=== PATIENT | female | born 1970 | race African-American/Black ===

== ENCOUNTER → 2017-09-24 | Outpatient (CLI) | payer BC ==
--- NOTE | 2017-09-24 14:56 | RADIOLOGY REPORT (SQ) ---
EXAM DESCRIPTION: MRI RT UPPER EXTREMITY COMBO COMPLETED DATE/TIME: 09/24/2017 9:42 am REASON FOR STUDY: LOCALIZED SWELLING, MASS AND LUMP IN RIGHT HAND (R22.31) R22.31 LOCALIZED SWELLIN G, MASS AND LUMP, RIGHT UPPER LIMB COMPARISON: None. TECHNIQUE: Multiplanar fat and fluid sensitive sequences precontrast including T1, T2 fat saturated or STIR. Post contrast T1 fat saturated sequences after IV gadolinium administration. CONTRAST TYPE AND DOSE: 10 mL Prohance. RENAL FUNCTION: GFR > 60. LIMITATIONS: None. FINDINGS: On the volar aspect of the head of the 4th metacarpal there is approximately 7 x 3 mm lesi on following fluid on all sequences which does not enhance consistent with a ganglion cyst. Cyst lie s along the volar margin of the flexor tendon. Regional marrow signal is normal. IMPRESSION: Ganglion cyst. TECHNICAL DOCUMENTATION: JOB ID: [id number] [employer]- All Rights Reserved
== END ==
LOC: RAD 08:04
PROVIDERS: ATTEND Orthopaedic Surgery
PROC: 4A1HXCZ Monitoring of Products of Conception, Cardiac Rate, External Approach (ICD-10-PCS; principal; 2017-09-24)
DX: M67.431 Ganglion, right wrist (principal); R22.31 Localized swelling, mass and lump, right upper limb

== ENCOUNTER 2017-11-23 07:05 | Day surgery (SDC) | payer BC ==
[2017-11-16 11:17] LABS: APPEARANCE,URINE SLIGHTLY-CLOUDY; BILIRUBIN,URINE NEGATIVE (NEGATIVE); COLOR,URINE YELLOW; GLUCOSE, URINE NEGATIVE (NEGATIVE); KETONES,URINE NEGATIVE (NEGATIVE); LEUKOCYTE ESTERASE,URINE NEGATIVE (NEGATIVE); NITRITE,URINE NEGATIVE (NEGATIVE); PROTEIN,URINE NEGATIVE (NEGATIVE); URINE SPECIFIC GRAVITY 1.013; UROBILINOGEN,URINE NEGATIVE mg/dL (<2.0)
[2017-11-16 11:52] LABS: ABSOLUTE BASOPHILS # (AUTO) 0.1 10^3/uL (0.0-0.2); ABSOLUTE EOSINOPHILS # (AUTO) 0.2 10^3/uL (0.0-0.6); ABSOLUTE LYMPHOCYTES (AUTO) 2.5 10^3/uL (0.5-4.7); ABSOLUTE MONOCYTES (AUTO) 0.7 10^3/uL (0.1-1.4); ABSOLUTE NEUT (AUTO) 3.9 10^3/uL (1.7-8.2); BASOPHILS % (AUTO) 1.4 % (0-2); EOSINOPHILS % (AUTO) 3.3 % (0-6); HEMATOCRIT 38.5 % (36.0-47.0); HEMOGLOBIN 12.6 g/dL (12.0-15.5); LYMPHOCYTES % (AUTO) 33.9 % (13-45); MEAN CORPUSCULAR HEMOGLOBIN 27.4 pg (27.0-33.4); MEAN CORPUSCULAR HGB CONC 32.7 g/dL (32.0-36.0); MEAN CORPUSCULAR VOLUME 84 fl (80-97); MONOCYTES % (AUTO) 8.8 % (3-13); PLATELET COUNT 296 10^3/uL (150-450); RED BLOOD COUNT 4.61 10^6/uL (3.72-5.28); RED CELL DISTRIBUTION WIDTH 15.3 % (11.5-14.0); SEGMENTED NEUTROPHILS % (AUTO) 52.6 % (42-78); TOTAL CELLS COUNTED % (AUTO) 100 %; WHITE BLOOD COUNT 7.5 10^3/uL (4.0-10.5)
--- NOTE | 2017-11-16 11:58 | RADIOLOGY REPORT (SQ) ---
EXAM DESCRIPTION: CHEST PA/LATERAL COMPLETED DATE/TIME: 11/16/2017 11:25 am REASON FOR STUDY: PRE OP COMPARISON: None. EXAM PARAMETERS: NUMBER OF VIEWS: two views TECHNIQUE: Digital Frontal and Lateral radiographic views of the chest acquired. RADIATION DOSE: NA LIMITATIONS: none FINDINGS: LUNGS AND PLEURA: Minimal lingular bandlike atelectasis or scarring. No fluffy alveolar infiltrates worrisome for edema or pneumonia. No pleural effusion. No pneumothor ax. MEDIASTINUM AND HILAR STRUCTURES: No masses or contour abnormalities. HEART AND VASCULAR STRUCTURES: Heart normal size. No evidence for failure. BONES: No acute findings. HARDWARE: None in the chest. OTHER: No other significant finding. IMPRESSION: Minimal lingular atelectasis or scarring TECHNICAL DOCUMENTATION: JOB ID: [id number] [employer]- All Rights Reserved
[2017-11-16 12:21] LABS: ANION GAP 8 (5-19); BLOOD UREA NITROGEN 11 mg/dL (7-20); CALCIUM 9.7 mg/dL (8.4-10.2); CARBON DIOXIDE 26 mmol/L (22-30); CHLORIDE 105 mmol/L (98-107); GLUCOSE 87 mg/dL (75-110); POTASSIUM 4.1 mmol/L (3.6-5.0); SODIUM 138.7 mmol/L (137-145)
--- NOTE | 2017-11-16 13:00 | EKG REPORT ---
SEVERITY:- ABNORMAL ECG - SINUS RHYTHM PROBABLE ANTEROSEPTAL INFARCT, AGE INDETERM BORDERLINE T ABNORMALITIES, INFERIOR LEADS : Confirmed by: Delvis Montiel MD 16-Nov-2017 13:00:05
[~2017-11-23 07:05] MED LIST: ACETAMINOPHEN 100 ML IV ONE; CEFAZOLIN 2 GM/D5W RTU 2 GM/50 ML RTUPB IV PRN; EPHEDRINE SULFATE INJ 50 MG/1 ML AMPULE ONE; FENTANYL CITRATE INJ/PF 100 MCG/2 ML AMPUL ONE; KETAMINE HCL INJ 500 MG/10 ML VIAL ONE; LACTATED RINGERS 1000 ML IV PRN; LIDOCAINE 0.5% INJ-PF (5 MG/ML) 50 ML SDV SUBCUT PRN; MIDAZOLAM 2 MG/2 ML INJ ONE; PROPOFOL INJ 200 MG/20 ML VIAL IV ONE
[2017-11-23] MEDS ORDERED: BUPIVACAINE HCL 0.5 % INJ/PF 30 ML SDV ONE (08:04)
[2017-11-23] MEDS ORDERED: LIDOCAINE 1% INJ-PF (10 MG/ML) 30 ML SDV ONE (09:21)
[2017-11-23] MEDS ORDERED: ONDANSETRON HCL INJ/PF 4 MG/2 ML SDV IV PRN ×2 (09:37→10:51)
[2017-11-23] MEDS ORDERED: MORPHINE SULFATE 10 MG/ML INJ IV PRN (09:37)
[2017-11-23] MEDS ORDERED: HYDROCODONE/ACETAMINOPHEN 5-325 MG TABLET PO PRN (09:37)
--- NOTE | 2017-11-23 09:37 | Operative Report ---
Operative Report DATE OF SURGERY: 11/23/17 PREOPERATIVE DIAGNOSIS: Mass right hand POSTOPERATIVE DIAGNOSIS: Ganglion cyst tendon sheath right ring finger OPERATION: 1. excision ganglion right ring finger. 2. A1 blanca release right ring finger SURGEON: EBEN LEE ANESTHESIA: LMAC TISSUE REMOVED OR ALTERED: Mass right hand COMPLICATIONS: None ESTIMATED BLOOD LOSS: Minimal PROCEDURE: Indication for above procedure: 47-year-old female presented to my office with mass along the palm of her right hand. MRI was done demonstrating likely ganglion along the flexor tendon sheath. At that point we discussed treatment options including operative versus nonoperative intervention. Risks and benefits were explained to the patient decision was made to proceed with operative treatment. Procedure In Detail: Patient was seen and evaluated in the preoperative holding area. The RIGHT upper extremity was initialized and marked. Patient received 2g of Ancef IV for bacterial prophylaxis. Patient was taken back to the operative room where transferred to the operative table. Once they were adequately anesthetized a nonsterile tourniquet was placed on the upper extremity. A surgical team debriefing was performed ensuring all instrumentation was available, the surgical procedure was discussed with possible concerns reviewed. A digital block was performed utilizing 10 mL 50:50 mixture of 0.5% Marcaine and 1% lidocaine without epinephrine. The upper extremity was prepped with chlorhexidine and alcohol and draped in a sterile fashion. A timeout was done identifying correct patient, procedure and extremity everyone in attendance agree with this and verbalized no concerns. The extremity was exsanguinated the tourniquet was inflated to 250 mmHg. Longitudinal skin incision was made centered over the A1 blanca of the ring finger. The radial and ulnar neurovascular bundles were identified and retracted from the wound. The ganglion cyst was located just ulnar to the A1 blanca. The A1 blanca was identified and incised. The A1 blanca was released to the level of the A2 blanca but not through the A2 blanca. The palmar aponeurotic blanca was released proximal to the A1 blanca. I then resected the ulnar aspect of the A1 blanca with the ganglion was attached. Ganglion was then sent to pathology. The wound was then copiously irrigated with normal saline. Skin was closed with interrupted 4-0 nylon suture. Wound was dressed with Xeroform and a soft dressing. Sponge counts, instrument counts, needle counts counts were correct. Patient was then awoken from anesthesia. Transferred from the operating room table to the operating room stretcher. There was no intraoperative complications patient tolerated procedure well stable to PACU. Postoperative plan: Patient will follow-up as scheduled for wound check. They will call with any questions or concerns.
--- NOTE | 2017-11-23 09:37 | PDOC DISCHARGE SUMMARY ---
Discharge Summary (SDC) - Discharge Final Diagnosis: Mass Right Hand Date of Surgery: 11/23/17 Discharge Date: 11/23/17 Condition: Good Treatment or Instructions: Schedule Follow Up w/ Dr. Ruben Khan @ [facility] for Surgery to be seen in 10-14 days or as scheduled [place]: [place]: [place]: May remove dressing on postop day #3, keep incision covered and dry. Ice and elevate May begin finger range of motion attempting to make full fist. Stool softener of choice when on pain medication. I Prescriptions: Hydrocodone/Acetaminophen [Renovo 5-325 mg Tablet] 1 tab PO Q6 #20 tablet Referrals: AMARI GOMEZ MD [Primary Care Provider] - Discharge Diet: As Tolerated Respiratory Treatments at Home: Deep Breathing/Coughing Discharge Activity: No Lifting Over 10 Pounds, No Lifting/Push/Pulling Report the Following to Your Physician Immediately: Fever over 101 Degrees, Unusual Bleeding, Redness, Swelling
[2017-11-23] MEDS ORDERED: MEPERIDINE HCL/PF INJ 25 MG/1 ML DISP.SYRIN IV PRN (10:51)
[2017-11-23] MEDS ORDERED: DIPHENHYDRAMINE HCL 50 MG/ML VIAL IV PRN (10:51)
[2017-11-23] MEDS ORDERED: PROMETHAZINE HCL INJ 25 MG/1 ML VIAL IV PRN ×2 (10:51)
[2017-11-23] MEDS ORDERED: FENTANYL CITRATE INJ/PF 100 MCG/2 ML AMPUL IV PRN ×3 (10:51)
[2017-11-23] MEDS ORDERED: SUCCINYLCHOLINE CHLORIDE INJ 200 MG/10 ML VIAL ONE (12:00)
[2017-11-23] MEDS ORDERED: GLYCOPYRROLATE INJ 0.4 MG/2 ML VIAL ONE (12:00)
[2017-11-23] MEDS ORDERED: DEXAMETHASONE SOD PHOSPHATE INJ 4 MG/1 ML VIAL ONE (12:00)
[2017-11-23] MEDS ORDERED: LIDOCAINE 2% INJ-PF (20 MG/ML) 2 ML AMPUL ONE (12:00)
[2017-11-23] MEDS ORDERED: KETOROLAC TROMETHAMINE 60 MG/2 ML SDV ONE (12:00)
[2017-11-23] MEDS ORDERED: METOCLOPRAMIDE HCL INJ/PF 10 MG/2 ML SDV ONE (12:00)
[2017-11-23] MEDS ORDERED: ONDANSETRON HCL INJ/PF 4 MG/2 ML SDV ONE (12:00)
[2017-11-23 12:30] VITALS: BP 120/78
== END 2017-11-23 11:50 | disposition home or self-care (01) ==
LOC: OROUT 07:05
PROVIDERS: ATTEND Orthopaedic Surgery
PROC: 0LB70ZZ Excision of Right Hand Tendon, Open Approach (ICD-10-PCS; principal; 2017-11-23 09:30)
DX: M67.441 Ganglion, right hand (principal); F17.210 Nicotine dependence, cigarettes, uncomplicated; I10 Essential (primary) hypertension; Z79.899 Other long term (current) drug therapy
CPT/HCPCS: 93005; 36415 ×2; 84132; 85025; 81025; 80048; 81001; 88304 ×2; 71046; 93010; 26160; J2250; J3490 ×4; J1100; J1885; J3010; J2765; J0330; J2405; J2704; J0690; J0131; 1810

== ENCOUNTER → 2018-05-18 | Outpatient (CLI) | payer BC ==
[2018-05-18 14:03] LABS: HEMATOCRIT 35.1 % (36.0-47.0); HEMOGLOBIN 11.6 g/dL (12.0-15.5); MEAN CORPUSCULAR HGB CONC 32.9 g/dL (32.0-36.0); MEAN CORPUSCULAR VOLUME 82 fl (80-97); PLATELET COUNT 309 10^3/uL (150-450); RED BLOOD COUNT 4.28 10^6/uL (3.72-5.28); RED CELL DISTRIBUTION WIDTH 14.8 % (11.5-14.0); WHITE BLOOD COUNT 8.5 10^3/uL (4.0-10.5)
--- NOTE | 2018-05-18 14:15 | RADIOLOGY REPORT (SQ) ---
EXAM DESCRIPTION: CHEST PA/LATERAL COMPLETED DATE/TIME: 05/18/2018 2:00 pm REASON FOR STUDY: CHEST PAIN, UNSPECIFIED COMPARISON: 11/16/2017. EXAM PARAMETERS: NUMBER OF VIEWS: two views TECHNIQUE: Digital Frontal and Lateral radiographic views of the chest acquired. RADIATION DOSE: NA LIMITATIONS: none FINDINGS: LUNGS AND PLEURA: No opacities, masses or pneumothorax. No pleural effusion. MEDIASTINUM AND HILAR STRUCTURES: No masses or contour abnormalities. HEART AND VASCULAR STRUCTURES: Heart normal size. No evidence for failure. BONES: No acute findings. HARDWARE: None in the chest. OTHER: No other significant finding. IMPRESSION: NO SIGNIFICANT RADIOGRAPHIC FINDING IN THE CHEST. TECHNICAL DOCUMENTATION: JOB ID: [id number] [employer]- All Rights Reserved Reading location - IP/workstation name: [email or web address]
[2018-05-18 14:20] LABS: ALANINE AMINOTRANSFERASE 28 U/L (9-52); ALBUMIN 3.9 g/dL (3.5-5.0); ALKALINE PHOSPHATASE 70 U/L (38-126); ANION GAP 9 (5-19); ASPARTATE AMINO TRANSFERASE 25 U/L (14-36); BILIRUBIN,DIRECT 0.2 mg/dL (0.0-0.4); BILIRUBIN,TOTAL 0.3 mg/dL (0.2-1.3); BLOOD UREA NITROGEN 11 mg/dL (7-20); CALCIUM 9.3 mg/dL (8.4-10.2); CARBON DIOXIDE 22 mmol/L (22-30); CHLORIDE 111 mmol/L (98-107); GLUCOSE 86 mg/dL (75-110); POTASSIUM 4.4 mmol/L (3.6-5.0); SODIUM 142.4 mmol/L (137-145)
== END ==
LOC: OD 13:31
PROVIDERS: ATTEND Obstetrics & Gynecology
DX: R07.9 Chest pain, unspecified (principal)
CPT/HCPCS: 36415; 71046; 80053; 84484; 85027; 85379

== ENCOUNTER 2018-05-23 17:53 | Observation (INO) | payer BC ==
[2018-05-23] MEDS ORDERED: ASPIRIN 81 MG TABLET, CHEWABLE PO ONE (19:01)
[2018-05-23] MEDS ORDERED: NITROGLYCERIN 0.4 MG/TAB 25 TAB/BOTTLE SL PRN (19:02)
--- NOTE | 2018-05-23 19:04 | ER Document Report ---
ED Medical Screen (RME) - General Chief Complaint: Chest Pain Stated Complaint: CHEST PAINS Time Seen by Provider: 05/23/18 18:53 Mode of Arrival: Ambulatory TRAVEL OUTSIDE OF THE [place] IN LAST 30 DAYS: No - HPI Notes: 05/23/18 18:59 40-year-old female presents to the ED with complaints of chest pain that started at 1630 today, left-sided, no radiation to jaw or arm and back. States last for a few minutes and then goes away. Started while at work, patient was at rest. Patient takes daily aspirin. Patient was evaluated by primary care doctor week ago, told she did have a history of a prior [place] and looking EKG, will have her follow-up with the actuarial analyst. Patient is a smoker, half a pack a day. Unsure parents cardiac status due to him passing from a drug users. Denies any fevers or chills. Patient states she does have intermittent shortness of breath with chest pain. Pain is fleeting. Has not tried any nitro. Lungs CTA S1, S2 regular rhythm. No murmurs noted I have greeted and performed a rapid initial assessment of this patient. A comprehensive ED assessment and evaluation of the patient, analysis of test results and completion of medical decision making process will be conducted by an additional ED providers. - Related Data Allergies/Adverse Reactions: No Known Allergies Allergy (Verified 05/23/18 18:45) Past Medical History - Social History Chew tobacco use (# tins/day): No Frequency of alcohol use: Social Drug Abuse: None - Past Medical History Cardiac Medical History: Reports: Hx Hypertension - ON MEDS Denies: Hx Coronary Artery Disease, Hx Heart Attack Pulmonary Medical History: Denies: Hx Asthma, Hx Bronchitis, Hx COPD, Hx Pneumonia Neurological Medical History: Denies: Hx Cerebrovascular Accident, Hx Seizures Renal/ Medical History: Denies: Hx Peritoneal Dialysis Musculoskeltal Medical History: Denies Hx Arthritis Past Surgical History: Reports: Hx Gynecologic Surgery - Right tube removed, ECTOPIC - Immunizations Hx Diphtheria, Pertussis, Tetanus Vaccination: Yes History of Influenza Vaccine for 07/2017 - 12/2017 Season: Yes Influenza Administration Date for 07/2017 - 12/2017 Season: 07/19/17 Physical Exam - Vital signs Vitals: Temp Pulse Resp BP Pulse Ox 98.2 F 68 16 115/70 100 05/23/18 18:38 05/23/18 18:38 05/23/18 18:38 05/23/18 18:38 05/23/18 18:38 Course - Vital Signs Vital signs: Temp Pulse Resp BP Pulse Ox 98.2 F 68 16 115/70 100 05/23/18 18:38 05/23/18 18:38 05/23/18 18:38 05/23/18 18:38 05/23/18 18:38 Doctor's Discharge - Discharge Referrals: AMARI GOMEZ MD [Primary Care Provider] - Follow up as needed
[2018-05-23 19:37] LABS: ABSOLUTE BASOPHILS # (AUTO) 0.2 10^3/uL (0.0-0.2); ABSOLUTE EOSINOPHILS # (AUTO) 0.4 10^3/uL (0.0-0.6); ABSOLUTE LYMPHOCYTES (AUTO) 3.4 10^3/uL (0.5-4.7); ABSOLUTE MONOCYTES (AUTO) 0.9 10^3/uL (0.1-1.4); BASOPHILS % (AUTO) 1.9 % (0-2); EOSINOPHILS % (AUTO) 4.1 % (0-6); HEMATOCRIT 35.3 % (36.0-47.0); HEMOGLOBIN 11.7 g/dL (12.0-15.5); LYMPHOCYTES % (AUTO) 38.8 % (13-45); MEAN CORPUSCULAR HEMOGLOBIN 27.6 pg (27.0-33.4); MEAN CORPUSCULAR HGB CONC 33.2 g/dL (32.0-36.0); MEAN CORPUSCULAR VOLUME 83 fl (80-97); MONOCYTES % (AUTO) 9.8 % (3-13); PLATELET COUNT 291 10^3/uL (150-450); RED BLOOD COUNT 4.25 10^6/uL (3.72-5.28); RED CELL DISTRIBUTION WIDTH 14.8 % (11.5-14.0); SEGMENTED NEUTROPHILS % (AUTO) 45.4 % (42-78); TOTAL CELLS COUNTED % (AUTO) 100 %; WHITE BLOOD COUNT 8.8 10^3/uL (4.0-10.5)
[2018-05-23 19:52] LABS: ALANINE AMINOTRANSFERASE 23 U/L (9-52); ALBUMIN 4.3 g/dL (3.5-5.0); ALKALINE PHOSPHATASE 79 U/L (38-126); ANION GAP 9 (5-19); ASPARTATE AMINO TRANSFERASE 38 U/L (14-36); BILIRUBIN,DIRECT 0.2 mg/dL (0.0-0.4); BILIRUBIN,TOTAL 0.4 mg/dL (0.2-1.3); BLOOD UREA NITROGEN 13 mg/dL (7-20); CALCIUM 8.9 mg/dL (8.4-10.2); CARBON DIOXIDE 26 mmol/L (22-30); CHLORIDE 107 mmol/L (98-107); CREATINE KINASE 372 U/L (30-135); GLUCOSE 85 mg/dL (75-110); POTASSIUM 3.7 mmol/L (3.6-5.0); SODIUM 141.6 mmol/L (137-145); TOTAL PROTEIN 7.8 g/dL (6.3-8.2)
[2018-05-23 20:04] LABS: CREATINE KINASE MB 2.83 ng/mL (<4.55)
[2018-05-23 20:06] LABS: TROPONIN I < 0.012 ng/mL
--- NOTE | 2018-05-23 22:28 | EKG REPORT ---
SEVERITY:- ABNORMAL ECG - SINUS RHYTHM PROBABLE LEFT ATRIAL ABNORMALITY PROBABLE ANTEROSEPTAL INFARCT, AGE INDETERM : Confirmed by: Anel Zaldivar MD 23-May-2018 22:26:39
--- NOTE | 2018-05-23 22:56 | ER Document Report ---
ED General - General Chief Complaint: Chest Pain Stated Complaint: CHEST PAINS Time Seen by Provider: 05/23/18 18:53 Mode of Arrival: Ambulatory Notes: Patient is a 40-year-old female presents with complaint of chest pain. Has been intermittent for last several days. She saw her doctor at the end of the week this past week. She did not EKG which she told her show some signs of possible previous heart attack. That time he had blood work and chest x-ray was negative and is supposed to arrange for her to see a core drilling supervisor. She has not yet seen the core drilling supervisor and has not gotten a call from her primary care doctor about the appointment date or time. Today while at work she noticed every time she went to exert herself she would get chest pain that this left side and nonradiating. She said she get a little bit short of breath. She would like a diaphoretic. She did get nauseous or vomit. Said the chest pain has become more frequent and occurs whenever she exerts herself. Since she arrived here she received aspirin and nitro. Nitro did relieve her pain. She denies any fevers or infections. She is a smoker. She does have history of hypertension. She occasionally drinks alcohol. She has never had a stress test or cardiac workup in the past. TRAVEL OUTSIDE OF THE [place] IN LAST 30 DAYS: No - Related Data Allergies/Adverse Reactions: No Known Allergies Allergy (Verified 05/23/18 18:45) Past Medical History - Social History Smoking Status: Current Every Day Smoker Chew tobacco use (# tins/day): No Frequency of alcohol use: Social Drug Abuse: None Family History: Reviewed & Not Pertinent Patient has suicidal ideation: No Patient has homicidal ideation: No - Past Medical History Cardiac Medical History: Reports: Hx Hypertension - ON MEDS Denies: Hx Coronary Artery Disease, Hx Heart Attack Pulmonary Medical History: Denies: Hx Asthma, Hx Bronchitis, Hx COPD, Hx Pneumonia Neurological Medical History: Denies: Hx Cerebrovascular Accident, Hx Seizures Renal/ Medical History: Denies: Hx Peritoneal Dialysis Musculoskeletal Medical History: Denies Hx Arthritis Past Surgical History: Reports: Hx Gynecologic Surgery - Right tube removed, ECTOPIC - Immunizations Hx Diphtheria, Pertussis, Tetanus Vaccination: Yes Review of Systems - Review of Systems Notes: My Normal Review Basic REVIEW OF SYSTEMS: CONSTITUTIONAL : Denies fever, chills, or sweats. Denies recent illness. EENT: Denies eye, ear, throat, or mouth pain or symptoms. Denies nasal or sinus congestion. CARDIOVASCULAR: Chest pain RESPIRATORY: Denies cough, cold, or chest congestion. Some shortness of breath associated with chest pain. GASTROINTESTINAL: Denies abdominal pain. Denies nausea, vomiting, or diarrhea. MUSCULOSKELETAL: Denies neck or back pain or joint pain or swelling. SKIN: Denies rash or skin lesions. NEUROLOGICAL: Denies altered mental status or loss of consciousness. Denies headache. Denies weakness or paralysis or loss of use of either side. Denies problems with gait or speech. Denies sensory or motor loss. ALL OTHER SYSTEMS REVIEWED AND NEGATIVE. Physical Exam - Vital signs Vitals: Temp Pulse Resp BP Pulse Ox 98.2 F 68 16 115/70 100 05/23/18 18:38 05/23/18 18:38 05/23/18 18:38 05/23/18 18:38 05/23/18 18:38 - Notes Notes: General Appearance: Well nourished, alert, cooperative, no acute distress, no obvious discomfort. Well appearing. Vitals: reviewed, See vital signs table. Head: no swelling or tenderness to the head Eyes: PERRL, EOMI, Conjuctiva clear Mouth: No decreasd moisture Lungs: No wheezing, No rales, No rhonci, No accessory muscle use, good air exchange bilaterally. Heart: Normal rate, Regular rythm, No murmur, no rub Abdomen: Normal BS, soft, No rigidity, No abdominal tenderness, No guarding, no rebound, no abdominal masses, no organomegaly Extremities: strength 5/5 in all extremities, good pulses in all extremities, no swelling or tenderness in the extremities, no edema. Skin: warm, dry, appropriate color, no rash Neuro: speech clear, oriented x 3, normal affect, responds appropriately to questions. Course - Re-evaluation Re-evalutation: 05/24/18 00:[address] Tamayo who agrees to evaluate the patient for admission. Concern is the patient has a heart score for due to risk factors. Also concerning is the fact that she has intermittent pain that is worse with exertion and is relieved here with nitro. - Vital Signs Vital signs: Temp Pulse Resp BP Pulse Ox 98.2 F 68 16 115/70 100 05/23/18 18:38 05/23/18 18:38 05/23/18 18:38 05/23/18 18:38 05/23/18 18:38 - Laboratory Result Diagrams: 05/23/18 19:24 05/23/18 19:24 Laboratory results interpreted by me: 05/23/18 05/23/18 19:24 19:24 Hgb 11.7 L Hct 35.3 L RDW 14.8 H Est GFR (Non-Af Amer) 52 L AST 38 H Creatine Kinase 372 H - EKG Interpretation by Me Additional EKG results interpreted by me: 05/23/18 22:55 EKG is reviewed and interpreted by me. EKG shows sinus rhythm with rate of [address] segment elevation or depression. No ischemic T-wave inversions. WV interval, QRS duration, QTc of pulse are within normal range. Old EKG for comparison is from May 16, 2018. Discharge - Discharge Clinical Impression: Chest pain Qualifiers: Chest pain type: unspecified Qualified Code(s): R07.9 - Chest pain, unspecified Condition: Stable Disposition: ADMITTED OBSERVATION Admitting Provider: Hospitalist Unit Admitted: Telemetry Referrals: AMARI GOMEZ MD [Primary Care Provider] - Follow up as needed
--- NOTE | 2018-05-23 23:24 | RADIOLOGY REPORT (SQ) ---
EXAM DESCRIPTION: XR CHEST 1 VIEW COMPLETED DATE/TME: 05/23/2018 22:58 CLINICAL HISTORY: 48 years Female, chest pain COMPARISON: 8.1.18 NUMBER OF VIEWS/TECHNIQUE: 1/AP FINDINGS: Adequate lung volume, clear parenchyma, normal cardiac silhouette, and intact bony thorax. IMPRESSION: No acute cardiopulmonary findings.
[2018-05-24] MEDS ORDERED: NITROGLYCERIN 2% OINTMENT 1 GM PACKET TP ONE (00:27)
[2018-05-24] MEDS ORDERED: ONDANSETRON HCL INJ/PF 4 MG/2 ML SDV IV PRN (02:55)
[2018-05-24] MEDS ORDERED: NORMAL SALINE 1000 ML 1,000 ML IV PRN (02:55)
[2018-05-24] MEDS ORDERED: MAGNESIUM HYDROXIDE SUSP 30 ML UDCUP PO PRN (02:55)
[2018-05-24] MEDS ORDERED: ACETAMINOPHEN 325 MG TABLET PO PRN (02:55)
[2018-05-24] MEDS ORDERED: DEXTROSE 40% GEL 15 GM TUBE PO PRN ×2 (03:02)
[2018-05-24] MEDS ORDERED: GLUCAGON,HUMAN RECOMB 1 MG INJ SUBCUT PRN (03:02)
[2018-05-24] MEDS ORDERED: DEXTROSE 50%-WATER 25 GM/50 ML DISP.SYRIN IV PRN ×2 (03:02)
[2018-05-24 03:44] LABS: ABSOLUTE EOSINOPHILS # (AUTO) 0.4 10^3/uL (0.0-0.6); ABSOLUTE LYMPHOCYTES (AUTO) 2.9 10^3/uL (0.5-4.7); ABSOLUTE MONOCYTES (AUTO) 0.9 10^3/uL (0.1-1.4); ABSOLUTE NEUT (AUTO) 2.9 10^3/uL (1.7-8.2); BASOPHILS % (AUTO) 0.3 % (0-2); EOSINOPHILS % (AUTO) 5.8 % (0-6); HEMATOCRIT 34.7 % (36.0-47.0); HEMOGLOBIN 11.5 g/dL (12.0-15.5); LYMPHOCYTES % (AUTO) 41.4 % (13-45); MEAN CORPUSCULAR HEMOGLOBIN 27.4 pg (27.0-33.4); MEAN CORPUSCULAR HGB CONC 33.1 g/dL (32.0-36.0); MEAN CORPUSCULAR VOLUME 83 fl (80-97); MONOCYTES % (AUTO) 12.2 % (3-13); PLATELET COUNT 267 10^3/uL (150-450); RED BLOOD COUNT 4.19 10^6/uL (3.72-5.28); RED CELL DISTRIBUTION WIDTH 14.7 % (11.5-14.0); SEGMENTED NEUTROPHILS % (AUTO) 40.3 % (42-78); TOTAL CELLS COUNTED % (AUTO) 100 %; WHITE BLOOD COUNT 7.1 10^3/uL (4.0-10.5)
[2018-05-24 04:04] LABS: ANION GAP 11 (5-19); BLOOD UREA NITROGEN 12 mg/dL (7-20); CALCIUM 9.2 mg/dL (8.4-10.2); CARBON DIOXIDE 23 mmol/L (22-30); CHLORIDE 109 mmol/L (98-107); CHOLESTEROL 181.71 mg/dL (0-200); GLUCOSE 83 mg/dL (75-110); POTASSIUM 3.2 mmol/L (3.6-5.0); SODIUM 142.7 mmol/L (137-145); TRIGLYCERIDES 127 mg/dL (<150)
[2018-05-24 04:14] LABS: DIRECT LDL 104 mg/dL (<100)
[2018-05-24 04:19] LABS: TROPONIN I < 0.012 ng/mL
--- NOTE | 2018-05-24 04:34 | PDOC H&P ---
History of Present Illness Admission Date/PCP: 05/24/18 00:39 AMARI GOMEZ MD Patient complains of: Chest pain History of Present Illness: TRINIDAD ROBERT is a 48 year old -Monegasque female with history of hypertension and ongoing tobacco abuse who presented to the emergency room with acute onset of substernal chest pain felt as tightness and graded 4-5/10 in severity. Her pain has been starting on Wednesday and intermittent since then. She was seen by her primary care physician then who pursued conservative measures. She had dyspnea on Wednesday with a chest pain. She denies any fever or chills. No nausea or vomiting or abdominal pain. Upon arrival to the emergency room vital signs were within normal as listed below. Labs revealed mild anemia with hemoglobin of 11.7 and hematocrit 35.3 with platelets of 291 and WBC 8.8. CMP was within normal but her CK was 371 and later 317 with AST 38 and ALT 23. Chest x-ray showed no acute cardiopulmonary disease and EKG showed normal sinus rhythm with a rate of 75 with Q waves in V1 and V2 and T-wave inversion inferiorly. The patient will be admitted to an observation telemetry bed for further evaluation and management. Past Medical History Past Medical History: Ongoing tobacco abuse Cardiac Medical History: Reports: Hypertension - ON MEDS Denies: Coronary Artery Disease, Myocardial Infarction Pulmonary Medical History: Denies: Asthma, Bronchitis, Chronic Obstructive Pulmonary Disease (COPD), Pneumonia Hematology: Reports: Anemia Past Surgical History Past Surgical History: Reports: Other - 1. Right hand cyst excision 2. Surgery for tubal Social History Smoking Status: Current Every Day Smoker - She smokes third to half a pack of cigarettes per day Frequency of Alcohol Use: Rare Family History Family History: DM, Hypertension Parental Family History Reviewed: Yes Children Family History Reviewed: Yes Sibling(s) Family History Reviewed.: Yes Medication/Allergy Home Medications: Hydrochlorothiazide [Hydrodiuril 12.5 mg Tablet] 12.5 mg PO QAM 01/12/12 Lisinopril [Prinivil 20 mg Tablet] 20 mg PO DAILY 01/12/12 Aspirin [Burleigh Aspirin] 81 mg PO DAILY 05/24/18 Allergies/Adverse Reactions: No Known Allergies Allergy (Verified 05/23/18 18:45) Review of Systems Review of Systems: As per history of present illness. All pertinent systems were reviewed above. Constitutional, HEENT, cardiovascular, respiratory, GI, , musculoskeletal, neuro, psychiatric, endocrine, integumentary and hematologic systems were reviewed and are otherwise negative/unremarkable except for positive findings mentioned above in the HPI. Constitutional: ABSENT: chills, fever(s), headache(s), weight gain, weight loss Eyes: ABSENT: visual disturbances Ears: ABSENT: hearing changes Cardiovascular: ABSENT: chest pain, dyspnea on exertion, edema, orthropnea, palpitations Respiratory: ABSENT: cough, hemoptysis Gastrointestinal: ABSENT: abdominal pain, constipation, diarrhea, hematemesis, hematochezia, nausea, vomiting Genitourinary: ABSENT: dysuria, hematuria Musculoskeletal: ABSENT: joint swelling Integumentary: ABSENT: rash, wounds Neurological: ABSENT: abnormal gait, abnormal speech, confusion, dizziness, focal weakness, syncope Psychiatric: ABSENT: anxiety, depression, homidical ideation, suicidal ideation Endocrine: ABSENT: cold intolerance, heat intolerance, polydipsia, polyuria Hematologic/Lymphatic: ABSENT: easy bleeding, easy bruising Physical Exam Vital Signs: Temp Pulse Resp BP Pulse Ox 98.2 F 68 12 115/78 99 05/23/18 18:38 05/23/18 18:38 05/24/18 01:00 05/24/18 00:58 05/24/18 01:00 Exam: Generally: Pleasant middle-aged -[place]onegasque female in no acute distress Vital signs-as listed Head - atraumatic, normocephalic. Pupils - equal, round and reactive to light and accommodation. Extraocular movements are intact. No scleral icterus. Oropharynx - moist mucous membranes and tongue. No pharyngeal erythema or exudate. Neck - supple. No JVD. Carotid pulses 2+ bilaterally. No carotid bruits. No palpable thyromegaly or lymphadenopathy. Cardiovascular - regular rate and rhythm. Normal S1 and S2. No murmurs, gallops or rubs. Lungs - clear to auscultation bilaterally. Abdomen - soft and nontender. Positive bowel sounds. No palpable organomegaly or masses. Extremities - no pitting edema, clubbing or cyanosis. Neuro - grossly non-focal. She had grossly intact cranial nerves II through XII with normal sensory exam to light touch and muscle strength equal 5/5 in both upper and lower extremities. Gait was not tested. Skin - no rashes. Breast, pelvic and rectal - deferred Results Laboratory Results: 05/24/18 03:30 05/24/18 03:30 WBC 7.1 RBC 4.19 Hgb 11.5 L Hct 34.7 L MCV 83 MCH 27.4 MCHC 33.1 RDW 14.7 H Plt Count 267 Seg Neutrophils % 40.3 L Lymphocytes % 41.4 Monocytes % 12.2 Eosinophils % 5.8 Basophils % 0.3 Absolute Neutrophils 2.9 Absolute Lymphocytes 2.9 Absolute Monocytes 0.9 Absolute Eosinophils 0.4 Absolute Basophils 0.0 05/24/18 03:30 Creatine Kinase 317 H Impressions: Chest X-Ray 05/23/18 22:58 IMPRESSION: No acute cardiopulmonary findings. Assessment & Plan - Diagnosis (1) Chest pain Qualifiers: Chest pain type: unspecified Qualified Code(s): R07.9 - Chest pain, unspecified Is this a current diagnosis for this admission?: Yes Plan: Chest pain, rule out acute coronary syndrome. The patient will be admitted to an observation telemetry bed. Will follow serial cardiac enzymes and EKGs. We will obtain a cardiology consult in a.m. for further cardiac risk stratification. The patient will be placed on aspirin as well as p.r.n. sublingual nitroglycerin and morphine sulfate for pain. (2) Hypertension Is this a current diagnosis for this admission?: Yes Plan: We will continue lisinopril and HCTZ (3) Tobacco abuse Is this a current diagnosis for this admission?: Yes Plan: I counseled the patient for smoking cessation and the patient will receive further counseling here. (4) DVT prophylaxis Is this a current diagnosis for this admission?: Yes Plan: Subcutaneous Lovenox - Plan Summary Plan Summary: The plan of care was discussed in details with the patient. I answered all questions. The patient agreed to proceed with the above-mentioned plan. The patient is presumably full code. This note was created by [employer] software and may contain typo errors that may have not been proofread.
[2018-05-24] MEDS: LANSOPRAZOLE 30 MG TAB.RAP.DR PO SCH (06:19)
[2018-05-24 10:43] LABS: CREATINE KINASE MB 1.71 ng/mL (<4.55)
[2018-05-24 10:48] LABS: TROPONIN I < 0.012 ng/mL
[2018-05-24] MEDS: ENOXAPARIN SODIUM INJ 40 MG/0.4 ML DISP.SYRIN SUBCUT SCH (10:59)
[2018-05-24] MEDS: ASPIRIN 81 MG TABLET, CHEWABLE PO SCH (11:01)
[2018-05-24] MEDS: HYDROCHLOROTHIAZIDE 12.5 MG TABLET PO SCH (11:06)
[2018-05-24] MEDS: LISINOPRIL 10 MG TABLET PO SCH (11:06)
[2018-05-24 15:47] LABS: CREATINE KINASE MB 1.53 ng/mL (<4.55)
[2018-05-24 15:50] LABS: TROPONIN I < 0.012 ng/mL
[2018-05-24] MEDS ORDERED: NITROGLYCERIN 0.4 MG/TAB 25 TAB/BOTTLE SL PRN (15:51)
--- NOTE | 2018-05-24 21:28 | Progress Note ---
Provider Note Provider Note: 48 y.o. F admitted with chest pain. The patient was seen this morning on rounds , she denies chest pain, SOB, fever or chills. She is resting comfortably in bed on room air. Agree with street light inspector plan of care: 1. CHEST PAIN: Cardiology consulted. Plan for ECHO and stress test. Serial troponin < 0.012, no longer trending. SL Nitro PRN chest pain. Daily ASA. Cardiology consulted. Admit to med-tele. 2. HTN: continue home dose lisinopril.
--- NOTE | 2018-05-24 22:45 | PDOC CONSULTATION ---
Consultation Consult Date: 05/24/18 Attending physician:: MARIBEL BAUMANN Consult reason:: chest pain History of Present Illness Admission Date/PCP: 05/24/18 00:39 AMARI GOMEZ MD Patient complains of: Chest pain History of Present Illness: TRINIDAD ROBERT is a 48 year old -Slov[place] female with history of hypertension and ongoing tobacco abuse who presented to the emergency room with acute onset of substernal chest pain felt as tightness and graded 4-5/10 in severity. Her pain has been starting on Wednesday and intermittent since then. She was seen by her primary care physician then who pursued conservative measures. She had dyspnea on Wednesday with a chest pain. She denies any fever or chills. No nausea or vomiting or abdominal pain. Upon arrival to the emergency room vital signs were within normal as listed below. Labs revealed mild anemia with hemoglobin of 11.7 and hematocrit 35.3 with platelets of 291 and WBC 8.8. CMP was within normal but her CK was 371 and later 317 with AST 38 and ALT 23. Chest x-ray showed no acute cardiopulmonary disease and EKG showed normal sinus rhythm with a rate of 75 with Q waves in V1 and V2 and T-wave inversion inferiorly. The patient will be admitted to an observation telemetry bed for further evaluation and management. This history obtained by the hospitalist was reviewed and confirmed. Patient denied any prior history of heart problems, congestive heart failure, angina or myocardial infarction. Patient also denied any history of blood clots in the legs are in the lungs, gastroesophageal reflux etc. Patient does describe being somewhat stressed out at work. Past Medical History Cardiac Medical History: Reports: Hypertension - ON MEDS Denies: Coronary Artery Disease, Myocardial Infarction Pulmonary Medical History: Denies: Asthma, Bronchitis, Chronic Obstructive Pulmonary Disease (COPD), Pneumonia Neurological Medical History: Denies: Seizures Musculoskeltal Medical History: Denies: Arthritis Hematology: Reports: Anemia Past Surgical History Past Surgical History: Reports: Other - 1. Right hand cyst excision 2. Surgery for tubal Social History Information Source: Patient Smoking Status: Current Every Day Smoker Cigarettes Packs Per Day: 0.5 Number of Years Smokin Last Time Smoked: 05/23/18 Frequency of Alcohol Use: Social Hx Recreational Drug Use: No Hx Prescription Drug Abuse: No - Advance Directive Resuscitation Status: Full Code Family History Family History: DM, Hypertension Parental Family History Reviewed: Yes Children Family History Reviewed: Yes Sibling(s) Family History Reviewed.: Yes Medication/Allergy Home Medications: Hydrochlorothiazide [Hydrodiuril 12.5 mg Capsule] 12.5 mg PO QAM 01/12/12 Lisinopril [Prinivil 20 mg Tablet] 20 mg PO DAILY 01/12/12 Aspirin [[place] Aspirin] 81 mg PO DAILY 05/24/18 Nitroglycerin [Nitrostat 0.4 mg (1/150 Gr) Tabs 25/Bottle] 1 tab SL Q5MP PRN #1 bottle 05/25/18 Allergies/Adverse Reactions: No Known Allergies Allergy (Verified 05/23/18 18:45) Review of Systems Review of Systems: Please see history of present illness and past medical history as wall. Constitutional: No fever or chills reported. Head : No recent chronic headaches, recent head injury. Eyes: No recent eye pain, diplopia, redness, discharge, acute visual changes. Ears: No recent chronic ear pain, acute hearing loss, ear discharge. Oral cavity: No recent ulcerations, bleeding, oral cavity discomfort. Neck: No recent acute neck pain reported. Hematologic: No recent easy bruising or bleeding. Lymphatic: No recent lymph node enlargement reported. Cardiovascular system review: See history of present illness. Respiratory system review: No hemoptysis or blood clots in the lungs reported. Mild Shortness of breath on exertion Gastrointestinal system review: Negative for any recent acute hematemesis, melena. Genitourinary system review: No recent acute or chronic hematuria, flank pain, UTI etc. reported. Skin system review: Negative for any recent abnormal bruising, no rash, no pruritus reported. Neurologic: No prior history of strokes, mini strokes, seizure disorder. Psychologic: No history of major psychosis or major depression reported. Musculoskeletal: Minor aches and pains reported. No acute joint swelling reported. Endocrine: No recent polyuria, polydipsia, recent heat or cold intolerance. Physical Exam Vital Signs: Temp Pulse Resp BP Pulse Ox 98.3 F 58 L 17 116/75 100 05/24/18 20:07 05/24/18 20:07 05/24/18 20:07 05/24/18 20:07 05/24/18 20:07 Exam: GENERAL: well-nourished and in no acute distress. Alert and oriented x3 HEAD: Atraumatic, normocephalic. EYES: Pupils equal round and reactive to light, extraocular movements intact, sclera anicteric, conjunctiva are normal. ENT: TMs normal, nares patent, oropharynx clear without exudates. Moist mucous membranes. No oral ulcerations or bleeding gums noted NECK: supple without lymphadenopathy. Trachea is central. No cervical or axillary lymphadenopathy noted. Carotids are 2+, JVD WNL LUNGS: Respiration seems nonlabored, no significant accessory muscle action noted. Breath sounds clear to auscultation bilaterally and equal noted. No wheezes rales or rhonchi noted. No significant dullness noted on percussion. CHEST: Palpation of the chest wall shows no significant chest wall tenderness. 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 ABDOMEN: Soft, no significant tenderness appreciated, normoactive bowel sounds. No guarding, no rebound. No rigidity noted . No masses appreciated. EXTREMITIES: Pedal pulses are 1-2+, no calf tenderness noted. No clubbing or cyanosis. negative pedal edema noted NEUROLOGICAL: Focused neurological exam showed no significant neurologic deficit. Normal speech, no focal weakness appreciated. PSYCH: Normal mood, normal affect. Judgment and insight within normal limits. SKIN: No significant ecchymosis, skin is noted to be warm. MUSCULOSKELETAL EXAM: No significant acute joint swelling noted. Results Laboratory Results: 05/24/18 03:30 05/24/18 03:30 05/24/18 05/24/18 03:30 03:30 WBC 7.1 RBC 4.19 Hgb 11.5 L Hct 34.7 L MCV 83 MCH 27.4 MCHC 33.1 RDW 14.7 H Plt Count 267 Seg Neutrophils % 40.3 L Lymphocytes % 41.4 Monocytes % 12.2 Eosinophils % 5.8 Basophils % 0.3 Absolute Neutrophils 2.9 Absolute Lymphocytes 2.9 Absolute Monocytes 0.9 Absolute Eosinophils 0.4 Absolute Basophils 0.0 Sodium 142.7 Potassium 3.2 L Chloride 109 H Carbon Dioxide 23 Anion Gap 11 BUN 12 Creatinine 0.92 Est GFR ( Amer) > 60 Est GFR (Non-Af Amer) > 60 Glucose 83 Calcium 9.2 Triglycerides 127 Cholesterol 181.71 LDL Cholesterol Direct 104 H VLDL Cholesterol 25.0 HDL Cholesterol 43 08/07/18 08/07/18 08/07/18 03:30 03:30 09:50 Creatine Kinase 317 H 256 H CK-MB (CK-2) 2.10 Troponin I < 0.012 05/24/18 05/24/18 05/24/18 09:50 15:01 15:01 Creatine Kinase 238 H CK-MB (CK-2) 1.71 1.53 Troponin I < 0.012 < 0.012 EKG Comments: Sinus rhythm with minor nonspecific T-wave inversion Impressions: Chest X-Ray 05/23/18 22:58 IMPRESSION: No acute cardiopulmonary findings. Assessment & Plan - Diagnosis (1) Chest pain Qualifiers: Chest pain type: unspecified Qualified Code(s): R07.9 - Chest pain, unspecified Is this a current diagnosis for this admission?: Yes (2) Hypertension Qualifiers: Hypertension type: essential hypertension Qualified Code(s): I10 - Essential (primary) hypertension Is this a current diagnosis for this admission?: Yes (3) Tobacco abuse Is this a current diagnosis for this admission?: Yes - Notes Notes: NST ECHO Chest pain: Patient has some typical and atypical features of chest pain. Cardiac enzymes so far has been negative. Electrocardiogram did not show any definitive ST segment changes. Multiple differential diagnoses exist in this patient. In descending order of probability this includes underlying coronary artery disease, gastroesophageal reflux, musculoskeletal pain, referred pain from elsewhere, anxiety panic disorder etc.Patient has significant cardiac risk factors, which indicates that there is a intermediate probability of chest discomfort coming from underlying CAD. Feel that it would need to be evaluated further. Discussed evaluation to assess this. In this regard risk benefits of nuclear stress test and other alternative processes were discussed in detail. The patient prefers to undergo nuclear stress test. The small risk of radiation , myocardial infarction, , cardiac arrhythmias, respiratory distress etc. were discussed. Patient understood the risks and gave informed consent. Nuclear stress test was therefore scheduled. For risk evaluation, patient is also being scheduled for a 2-D echocardiogram. Patient questions were answered. Hypertension: Reasonably well controlled. Blood pressure goal in this patient is 135/85 or less. This was discussed with the patient. Currently blood pressure under reasonable control. Better medication for this patient are GALO inhibitor/ARB/beta holly etc. discussed side effects of uncontrolled hypertension and also severe hypotension. Patient has history of chronic smoking. Discussed detrimental effect of chronic smoking including worsening COPD, increased risk of cardiovascular events, cerebrovascular events, cancer and multiple other side effects of smoking. The benefits of smoking cessation discussed. Patient unwilling to give acommitment to quit. - Time Time Spent: 30 to 50 Minutes - More than 50% of the time spent coordinating care , discussing management plans with involved caregivers. Management plans discussed with involved personnels. Medical decision making was of moderate to high complexity, patient's has multiple comorbidities. Medications reviewed and adjusted accordingly: Yes
[2018-05-25] MEDS: LANSOPRAZOLE 30 MG TAB.RAP.DR PO SCH (05:06)
[2018-05-25 06:05] LABS: ANION GAP 8 (5-19); BLOOD UREA NITROGEN 18 mg/dL (7-20); CALCIUM 8.9 mg/dL (8.4-10.2); CARBON DIOXIDE 22 mmol/L (22-30); CHLORIDE 110 mmol/L (98-107); CHOLESTEROL 166.15 mg/dL (0-200); GLUCOSE 97 mg/dL (75-110); POTASSIUM 4.4 mmol/L (3.6-5.0); SODIUM 140.4 mmol/L (137-145); TRIGLYCERIDES 128 mg/dL (<150)
[2018-05-25 06:15] LABS: DIRECT LDL 101 mg/dL (<100)
[2018-05-25] MEDS: HYDROCHLOROTHIAZIDE 12.5 MG TABLET PO SCH (08:51)
[2018-05-25] MEDS: ENOXAPARIN SODIUM INJ 40 MG/0.4 ML DISP.SYRIN SUBCUT SCH (11:17)
[2018-05-25] MEDS: ASPIRIN 81 MG TABLET, CHEWABLE PO SCH (11:17)
[2018-05-25] MEDS: LISINOPRIL 10 MG TABLET PO SCH (11:18)
[2018-05-25 12:06] VITALS: BP 124/65
--- NOTE | 2018-05-25 22:46 | PDOC PROGRESS REPORT ---
Subjective Progress Note for:: 05/25/18 Subjective:: Patient is demanding to be discharged. Patient seems to be doing better. Pt is denying any chest arm or neck discomfort. Patient denying any PND, orthopnea. Patient denied any sustained palpitations, dizziness, syncope, near syncope. Patient denying any fever chills. Patient denying any other significant discomfort. Patient is maintaining sinus rhythm. Review of systems: Rest review of systems negative. Medications: Medications have been reviewed. Reason For Visit: CHEST PAIN Physical Exam Vital Signs: Temp Pulse Resp BP Pulse Ox 98.5 F 62 16 124/65 98 05/25/18 12:30 05/25/18 12:30 05/25/18 12:30 05/25/18 11:17 05/25/18 12:30 Intake & Output 05/24/18 05/25/18 05/26/18 06:59 06:59 06:59 Intake Total 1444 Balance 1444 Weight 75.8 kg Exam: GENERAL: well-nourished and in no acute distress. Alert and oriented x3 HEAD: Atraumatic, normocephalic. EYES: Pupils equal round and reactive to light, extraocular movements intact, sclera anicteric, conjunctiva are normal. ENT: TMs normal, nares patent, oropharynx clear without exudates. Moist mucous membranes. No oral ulcerations or bleeding gums noted NECK: supple without lymphadenopathy. Trachea is central. No cervical or axillary lymphadenopathy noted. Carotids are 2+, JVD WNL LUNGS: Respiration seems nonlabored, no significant accessory muscle action noted. Breath sounds clear to auscultation bilaterally and equal noted. No wheezes rales or rhonchi noted. No significant dullness noted on percussion. CHEST: Palpation of the chest wall shows no significant chest wall tenderness. 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 ABDOMEN: Soft, no significant tenderness appreciated, normoactive bowel sounds. No guarding, no rebound. No rigidity noted . No masses appreciated. EXTREMITIES: Pedal pulses are 1-2+, no calf tenderness noted. No clubbing or cyanosis. negative pedal edema noted NEUROLOGICAL: Focused neurological exam showed no significant neurologic deficit. Normal speech, no focal weakness appreciated. PSYCH: Normal mood, normal affect. Judgment and insight within normal limits. SKIN: No significant ecchymosis, skin is noted to be warm. MUSCULOSKELETAL EXAM: No significant acute joint swelling noted. Results Laboratory Results: 05/24/18 03:30 05/25/18 04:22 05/25/18 04:22 Sodium 140.4 Potassium 4.4 Chloride 110 H Carbon Dioxide 22 Anion Gap 8 BUN 18 Creatinine 0.94 Est GFR ( Amer) > 60 Est GFR (Non-Af Amer) > 60 Glucose 97 Calcium 8.9 Triglycerides 128 Cholesterol 166.15 LDL Cholesterol Direct 101 H VLDL Cholesterol 26.0 HDL Cholesterol 38 L 05/24/18 05/24/18 05/24/18 03:30 03:30 09:50 Creatine Kinase 317 H 256 H CK-MB (CK-2) 2.10 Troponin I < 0.012 05/24/18 05/24/18 05/24/18 09:50 15:01 15:01 Creatine Kinase 238 H CK-MB (CK-2) 1.71 1.53 Troponin I < 0.012 < 0.012 EKG Comments: Shows sinus rhythm without any sustained tachycardia or bradycardia Impressions: Chest X-Ray 05/23/18 22:58 IMPRESSION: No acute cardiopulmonary findings. Assessment & Plan - Diagnosis (1) Chest pain Qualifiers: Chest pain type: unspecified Qualified Code(s): R07.9 - Chest pain, unspecified Is this a current diagnosis for this admission?: Yes (2) Hypertension Qualifiers: Hypertension type: essential hypertension Qualified Code(s): I10 - Essential (primary) hypertension Is this a current diagnosis for this admission?: Yes (3) Tobacco abuse Is this a current diagnosis for this admission?: Yes - Notes Notes: NST, ECHO Pt wants to go home. Schedule these test as OP. Chest pain: Resolved. Cardiac enzymes were stone cold negative. Discussed various differential diagnosis. He still feels that nuclear stress test is indicated or at least a stress echo is indicated. Patient however wants to be discharged rather than wait for the stress test to be performed. Patient will also benefit from a 2D echocardiogram. Patient again wishes to be discharged and this test to be scheduled as an outpatient. Hypertension: Currently reasonably well-controlled. Patient to continue with current antihypertensive. Tobacco abuse: Patient advised to quit smoking. Benefits of smoking cessation and risk associated with continued smoking was discussed. - Time Time with patient: 15-25 minutes - More than 50% of the time spent coordinating care, discussing management plans with involved caregivers. Management plans discussed with involved personnels. Medical decision making was of moderate to high complexity, patient's has multiple comorbidities.
--- NOTE | 2018-05-30 07:58 | PDOC DISCHARGE SUMMARY ---
General - Admit/Disc Date/PCP Admission Date/Primary Care Provider: 05/24/18 00:39 AMARI GOMEZ MD Discharge Date: 05/25/18 - Additional Information Resuscitation Status: Full Code Discharge Diet: As Tolerated Discharge Activity: Activity As Tolerated Prescriptions: Nitroglycerin [Nitrostat 0.4 mg (1/150 Gr) Tabs 25/Bottle] 1 tab SL Q5MP PRN #1 bottle PRN Reason: Home Medications: Hydrochlorothiazide [Hydrodiuril 12.5 mg Capsule] 12.5 mg PO QAM 01/12/12 Lisinopril [Prinivil 20 mg Tablet] 20 mg PO DAILY 01/12/12 Aspirin [[place] Aspirin] 81 mg PO DAILY 05/24/18 Nitroglycerin [Nitrostat 0.4 mg (1/150 Gr) Tabs 25/Bottle] 1 tab SL Q5MP PRN #1 bottle 05/25/18 History of Present Illness History of Present Illness: Per Dr. English: TRINIDAD ROBERT is a 48 year old -Iranian female with history of hypertension and ongoing tobacco abuse who presented to the emergency room with acute onset of substernal chest pain felt as tightness and graded 4-5/10 in severity. Her pain has been starting on Wednesday and intermittent since then. She was seen by her primary care physician then who pursued conservative measures. She had dyspnea on Wednesday with a chest pain. She denies any fever or chills. No nausea or vomiting or abdominal pain. Upon arrival to the emergency room vital signs were within normal as listed below. Labs revealed mild anemia with hemoglobin of 11.7 and hematocrit 35.3 with platelets of 291 and WBC 8.8. CMP was within normal but her CK was 371 and later 317 with AST 38 and ALT 23. Chest x-ray showed no acute cardiopulmonary disease and EKG showed normal sinus rhythm with a rate of 75 with Q waves in V1 and V2 and T-wave inversion inferiorly. The patient will be admitted to an observation telemetry bed for further evaluation and management. Hospital Course Hospital Course: 48 y.o. F with a PMH of HTN presented to [facility] ED on May 24, 2018 with chest pain. The patient reported that she was not sure if she missed a dose of her lisinopril. She reports that sometimes when she does not take her blood pressure medication that she will experience chest tightness and/or pain. Her EKG showed NSR, no infarction or ischemia. Serial troponins were negative. CXR benign. The patient was admitted to the hospitalist service with cardiology consulted. Serial EKGs all demonstrated NSR. Plan was for patient to Cardiolite stress test completed while inpatient, unfortunately due to technical errors, the patient was waiting over 24 hours for her stress test. Cardiology agreed that the patient could complete her stress test as an outpatient. After approximately 24 hours in the hospital, the patient was deemed safe for discharge. Her vital signs were all stable. Her EKG and cardiac enzymes were normal. Discharge plan was discussed with the patient, she is to follow-up with Dr. Roblero within 48 hours for outpatient stress test. The patient agrees that she will continue to take her home dose lisinopril as directed. The patient states complete understanding of her discharge instructions. For any further information regarding the patient's hospitalization, please refer to the EMR. Physical Exam Vital Signs: Temp Pulse Resp BP Pulse Ox 98.5 F 62 16 124/65 98 05/25/18 12:30 05/25/18 12:30 05/25/18 12:30 05/25/18 11:17 05/25/18 12:30 Results Laboratory Results: 05/24/18 03:30 05/25/18 04:22 05/24/18 05/24/18 05/24/18 03:30 03:30 09:50 Creatine Kinase 317 H 256 H CK-MB (CK-2) 2.10 Troponin I < 0.012 05/24/18 05/24/18 05/24/18 09:50 15:01 15:01 Creatine Kinase 238 H CK-MB (CK-2) 1.71 1.53 Troponin I < 0.012 < 0.012 Impressions: Chest X-Ray 05/23/18 22:58 IMPRESSION: No acute cardiopulmonary findings. Qualifiers - * PATIENT BEING DISCHARGED WITH ANY OF THE FOLLOWING DIAGNOSIS: No Plan Discharge Plan: DISCHARGE HOME. FOLLOW UP WITH DR. ROBLERO FOR OUTPATIENT STRESS TEST Time Spent: Less than 30 Minutes
== END 2018-05-25 13:05 | disposition home or self-care (01) ==
LOC: ER 17:53 → EH 05-24 00:39 → 4S 05-24 18:18
PROVIDERS: ADMIT Family Medicine; ATTEND Family Medicine
DX: R07.9 Chest pain, unspecified (principal); I10 Essential (primary) hypertension; F17.210 Nicotine dependence, cigarettes, uncomplicated; D64.9 Anemia, unspecified; R06.02 Shortness of breath; I25.2 Old myocardial infarction; Z79.899 Other long term (current) drug therapy; Z82.49 Family history of ischemic heart disease and other diseases of the circulatory system; Z79.82 Long term (current) use of aspirin
CPT/HCPCS: 93005; 99285; 36415 ×3; 82553 ×2; 82550 ×2; 85025 ×2; 80048 ×2; 80053; 84484 ×2; 80061 ×2; 71045; 93010; G0378 ×3; J1650 ×2; J7030

== ENCOUNTER 2018-12-02 07:11 | Emergency (ER) | payer BC, OTHER ==
[2018-12-02] MEDS ORDERED: LIDOCAINE 5% (700 MG) TRANSDERMAL ADH..PATCH TP ONE (08:01)
--- NOTE | 2018-12-02 08:03 | ER Document Report ---
ED General - General Chief Complaint: Leg Pain Stated Complaint: RIGHT LEG PAIN Time Seen by Provider: 12/02/18 07:43 Primary Care Provider: AMARI GOMEZ MD [Primary Care Provider] - Follow up in 3-5 days TRAVEL OUTSIDE OF THE [place] IN LAST 30 DAYS: No - HPI Patient complains to provider of: Right leg cramp Notes: Patient coming in for evaluation of right leg cramps ongoing for the last 24 hours. Patient is difficult time sleeping states no difficulty in ambulating as she is able to get up on stretcher to want to seem to have any her bag of medications. Patient denies any trauma denies any fever chills nausea vomiting diarrhea patient does have a history of hypertension on multiple antihypertensives including lisinopril and hydrochlorthiazide. Patient states no recent laboratory studies on patient patient states that she does not drink water nor does she eat a healthy diet. Otherwise patient has no acute findings on evaluation - Related Data Allergies/Adverse Reactions: No Known Allergies Allergy (Verified 05/23/18 18:45) Past Medical History - Social History Smoking Status: Current Every Day Smoker Chew tobacco use (# tins/day): No Frequency of alcohol use: None Drug Abuse: None Family History: DM, Hypertension Patient has suicidal ideation: No Patient has homicidal ideation: No - Past Medical History Cardiac Medical History: Reports: Hx Hypertension - ON MEDS Denies: Hx Coronary Artery Disease, Hx Heart Attack Pulmonary Medical History: Denies: Hx Asthma, Hx Bronchitis, Hx COPD, Hx Pneumonia Neurological Medical History: Denies: Hx Cerebrovascular Accident, Hx Seizures Renal/ Medical History: Denies: Hx Peritoneal Dialysis Musculoskeletal Medical History: Denies Hx Arthritis Past Surgical History: Reports: Hx Gynecologic Surgery - Right tube removed, ECTOPIC , Other - 1. Right hand cyst excision 2. Surgery for tubal - Immunizations Hx Diphtheria, Pertussis, Tetanus Vaccination: Yes Review of Systems - Review of Systems Constitutional: No symptoms reported EENT: No symptoms reported Cardiovascular: No symptoms reported Respiratory: No symptoms reported Gastrointestinal: No symptoms reported Genitourinary: No symptoms reported Female Genitourinary: No symptoms reported Musculoskeletal: Other - Muscle cramps Skin: No symptoms reported Hematologic/Lymphatic: No symptoms reported Neurological/Psychological: No symptoms reported -: Yes All other systems reviewed and negative Physical Exam - Vital signs Vitals: Temp Pulse Resp BP Pulse Ox 98.0 F 74 14 120/79 95 12/02/18 07:19 12/02/18 07:19 12/02/18 07:19 12/02/18 07:19 12/02/18 07:19 Interpretation: Normal - General General appearance: Appears well, Alert - HEENT Head: Normocephalic, Atraumatic Eyes: Normal Pupils: PERRL - Respiratory Respiratory status: No respiratory distress Chest status: Nontender Breath sounds: Normal Chest palpation: Normal - Cardiovascular Rhythm: Regular Heart sounds: Normal auscultation Murmur: No - Abdominal Inspection: Normal Distension: No distension Bowel sounds: Normal Tenderness: Nontender Organomegaly: No organomegaly - Back Back: Normal, Nontender - Extremities General upper extremity: Normal inspection, Nontender, Normal color, Normal ROM, Normal temperature General lower extremity: Normal inspection, Nontender, Normal color, Normal ROM, Normal temperature, Normal weight bearing. No: Lucie's sign - Neurological Neuro grossly intact: Yes Cognition: Normal Orientation: AAOx4 Alexi Coma Scale Eye Opening: Spontaneous Alexi Coma Scale Verbal: Oriented [place] Coma Scale Motor: Obeys Commands Alexi Coma Scale Total: 15 Speech: Normal Motor strength normal: LUE, RUE, LLE, RLE Sensory: Normal - Psychological Associated symptoms: Normal affect, Normal mood - Skin Skin Temperature: Warm Skin Moisture: Dry Skin Color: Normal Course - Re-evaluation Re-evalutation: 12/02/18 08:02 No additional abnormalities patient will be given Robaxin for muscle cramps and discharged home. - Vital Signs Vital signs: Temp Pulse Resp BP Pulse Ox 98.4 F 63 18 112/64 99 12/02/18 09:53 12/02/18 09:53 12/02/18 09:53 12/02/18 09:53 12/02/18 09:53 - Laboratory Result Diagrams: 12/02/18 08:25 Laboratory results interpreted by me: 12/02/18 08:25 Est GFR (Non-Af Amer) 55 L Discharge - Discharge Clinical Impression: Leg cramps Condition: Good Disposition: HOME, SELF-CARE Instructions: Leg Cramps ([facility]), Muscle Relaxers ([facility]) Additional Instructions: Your evaluation today does not show any little abnormalities would actually recommend that you continue to drink plenty of fluids to stay well-hydrated take Tylenol Motrin for pain take Robaxin for muscle cramps Prescriptions: Methocarbamol [Robaxin 500 mg Tablet] 500 mg PO BID PRN #10 tablet PRN Reason: Forms: Return to Work Referrals: AMARI GOMEZ MD [Primary Care Provider] - Follow up in 3-5 days
[2018-12-02 08:52] LABS: ANION GAP 8 (5-19); BLOOD UREA NITROGEN 15 mg/dL (7-20); CALCIUM 9.2 mg/dL (8.4-10.2); CARBON DIOXIDE 25 mmol/L (22-30); CHLORIDE 107 mmol/L (98-107); GLUCOSE 96 mg/dL (75-110); SODIUM 139.5 mmol/L (137-145)
[2018-12-02 09:54] VITALS: BP 112/64
== END 2018-12-02 10:08 | disposition home or self-care (01) ==
LOC: ER 07:11
DX: R25.2 Cramp and spasm (principal); I10 Essential (primary) hypertension; Z79.899 Other long term (current) drug therapy; F17.200 Nicotine dependence, unspecified, uncomplicated
CPT/HCPCS: 36415; 80048; 83735; 99283

== ENCOUNTER 2019-08-21 09:10 | Emergency (ER) | payer SELFPAY ==
[2019-08-21 09:14] VITALS: BP 136/77
[2019-08-21] MEDS ORDERED: LIDOCAINE 5% (700 MG) TRANSDERMAL ADH..PATCH TP ONE (09:52)
[2019-08-21] MEDS ORDERED: KETOROLAC TROMETHAMINE 60 MG/2 ML SDV IM ONE (09:52)
[2019-08-21] MEDS ORDERED: METHOCARBAMOL 750 MG TABLET PO ONE (09:52)
--- NOTE | 2019-08-21 09:57 | ER Document Report ---
HPI - HPI Time Seen by Provider: 08/21/19 09:45 Notes: Patient is an otherwise healthy 49-year-old female presenting to the emergency room chief complaint of low back pain. Patient reports has been the weekend with her nieces and nephews and was carrying them in a hand-held car seat. She reports pain to her left lumbar area. Denies any urinary symptoms, denies any saddle anesthesia or urinary or bowel incontinence. - REPRODUCTIVE Reproductive: DENIES: : Past Medical History - General Information source: Patient - Social History Smoking Status: Never Smoker Frequency of alcohol use: None Family History: DM, Hypertension - Past Medical History Cardiac Medical History: Reports: Hx Hypertension - ON MEDS Denies: Hx Coronary Artery Disease, Hx Heart Attack Pulmonary Medical History: Denies: Hx Asthma, Hx Bronchitis, Hx COPD, Hx Pneumonia Neurological Medical History: Denies: Hx Cerebrovascular Accident, Hx Seizures Renal/ Medical History: Denies: Hx Peritoneal Dialysis Musculoskeletal Medical History: Denies Hx Arthritis Past Surgical History: Reports: Hx Gynecologic Surgery - Right tube removed, ECTOPIC , Other - 1. Right hand cyst excision 2. Surgery for tubal - Immunizations Hx Diphtheria, Pertussis, Tetanus Vaccination: Yes Vertical Provider Document - CONSTITUTIONAL Notes: PHYSICAL EXAMINATION: GENERAL: Well-appearing, well-nourished and in no acute distress. HEAD: Atraumatic, normocephalic. EYES: Pupils equal round extraocular movements intact, conjunctiva are normal. ENT: Nares patent NECK: Normal range of motion LUNGS: No respiratory distress Musculoskeletal: Normal range of motion, tenderness to palpation to left lumbar paraspinous area. No vertebral tenderness, step-off or deformity. NEUROLOGICAL: Normal speech, normal gait. PSYCH: Normal mood, normal affect. SKIN: Warm, Dry, normal turgor, no rashes or lesions noted. - INFECTION CONTROL TRAVEL OUTSIDE OF THE [place] IN LAST 30 DAYS: No Course - Re-evaluation Re-evalutation: Otherwise well-appearing 49-year-old female presenting with left-sided low back pain. No CVA tenderness present. No urinary symptoms. Patient does report some heavy lifting over the weekend. Likely musculoskeletal strain. Patient stable for discharge home. Did discuss ED return precautions and red flag symptoms of back pain, patient verbalizes understanding and agreement with same. The patient's emergency department workup and current diagnosis were explained to the patient and or family. Follow-up instructions were provided. Medications if prescribed were discussed. Instructions for when to return to the emergency department including specific worrisome symptoms were discussed with the patient and/or family. - Vital Signs Vital signs: Temp Pulse Resp BP Pulse Ox 97.5 F 64 16 136/77 H 100 08/21/19 09:13 08/21/19 09:13 08/21/19 09:13 08/21/19 09:13 08/21/19 09:13 Discharge - Discharge Clinical Impression: Low back pain Qualifiers: Chronicity: acute Back pain laterality: left Sciatica presence: without sciatica Qualified Code(s): M54.5 - Low back pain Condition: Stable Disposition: HOME, SELF-CARE Additional Instructions: You have been seen in the Emergency Department (ED) today for back pain. Your workup and exam have not shown any acute abnormalities and you are likely suffering from muscle strain or possible problems with your discs, but there is no treatment that will fix your symptoms at this time. Please take the muscle relaxer that has been prescribed as directed. Take ibuprofen 800 mg every 8 hours. You should also purchase a local lidocaine cream such as "aspercreme with lidocaine" and use per bottle instructions to the affected area. Apply heat to the area as often as you are able. Continue to keep active and avoid prolonged periods of bed rest. Please follow up with your doctor as soon as possible regarding today's ED visit and your back pain. Return to the ED for worsening back pain, fever, weakness or numbness of either leg, or if you develop either (1) an inability to urinate or have bowel movements, or (2) loss of your ability to control your bathroom functions (if you start having "accidents"), or if you develop other new symptom s that concern you.concern you. Prescriptions: Methocarbamol [Robaxin 750 mg Tablet] 750 mg PO Q4 #30 tablet Forms: Return to Work Referrals: AMARI GOMEZ MD [Primary Care Provider] - Follow up as needed
== END 2019-08-21 10:31 | disposition home or self-care (01) ==
LOC: ER 09:10
DX: M54.5 Low back pain (principal); I10 Essential (primary) hypertension
CPT/HCPCS: 99283; 96372; J1885; J3490

== ENCOUNTER → 2020-07-04 | Outpatient (CLI) | payer OTHER ==
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
== END ==
LOC: OD 14:39
PROVIDERS: ATTEND Obstetrics & Gynecology
DX: S20.219A Contusion of unspecified front wall of thorax, initial encounter (principal); M25.532 Pain in left wrist; M79.642 Pain in left hand; V89.2XXA Person injured in unspecified motor-vehicle accident, traffic, initial encounter
CPT/HCPCS: 71046